=== PATIENT | female | born 1965 | race Caucasian/White ===

== ENCOUNTER → 2019-05-11 10:22 | Outpatient (CLI) | payer OTHER, SELFPAY ==
--- NOTE | 2019-05-11 | DI.MG.S_ITS ---
BILATERAL DIGITAL SCREENING MAMMOGRAM 3D/2D WITH CAD: 05/11/2019 CLINICAL: Routine screening. Family history of breast cancer. Comparison is made to exams dated: 03/15/2011 mammogram, 03/19/2007 mammogram, and 02/25/2006 mammogram - [facility]. There are scattered fibroglandular elements in both breasts. Current study was also evaluated with a Computer Aided Detection (CAD) system. No significant masses, calcifications, or other findings are seen in either breast. There has been no significant interval change. IMPRESSION: NEGATIVE There is no mammographic evidence of malignancy. A 1 year screening mammogram is recommended. This exam was interpreted at Station ID: [id number]. NOTE: For mammograms, a report in lay terms will be sent to the patient. Approximately 15% of breast malignancies will not be visualized mammographically. In the management of a palpable breast mass, a negative mammogram must not discourage biopsy of a clinically suspicious lesion. Electronically Signed By: Dipak mayer/jacqueline:05/11/2019 17:31:18 letter sent: Normal Exam ACR BI-RADS Category 1: Negative [id number]
== END ==
PROVIDERS: PCP Registered Nurse Women's Health Care, Ambulatory; Visit Provider Nurse Practitioner Family
DX: Z12.31 Encounter for screening mammogram for malignant neoplasm of breast (principal); Z80.3 Family history of malignant neoplasm of breast
CPT/HCPCS: 77063; 77067

== ENCOUNTER 2019-08-16 11:32 | Day surgery (SDC) | payer OTHER, SELFPAY ==
--- NOTE | 2019-08-16 06:01 | PM.HP.1 ---
History of Present Illness History of Present Illness Date Patient Seen: 08/16/19 Time Patient Seen: 12:45 Chief complaint: [id number] Narrative: 53 Years Old Female comes in today for consideration of a screening colonoscopy. There have been no lower GI symptoms suggesting disease such as change in bowel habits, bleeding, abdominal pain or anemia. There's been no family history of colon cancer or colon polyps. Overall health issues have been stable, including no major cardiac events for at least 6 weeks. 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[place] [employer] Members: 4 Education: completed in 1985 Sun Exposure: frequently Meds Home Medications and Allergies Home Medications Medication Instructions Recorded Confirmed Type atorvastatin 10 mg PO BEDTIME 08/16/19 08/16/19 History pediatric [id number]-[id number] 1 tab PO DAILY 08/16/19 08/16/19 History [Multi-Vitamins with Iron] Allergies Allergy/AdvReac Type Severity Reaction Status Date / Time No Known Drug Allergies Allergy Verified 08/16/19 12:18 Review of Systems Review of Systems ROS Unobtainable: All systems reviewed & are unremarkable except as noted in HPI and below Exam Narrative Exam Narrative: General: Alert and oriented, appearing stated age and in no acute distress. Head: normocephalic and atraumatic, Neck: Neck soft and supple, no lymphadenopathy. Lungs: Clear to auscultation bilaterally, no wheezes, rhonchi or rales. Heart: Normal S1 and S2 with regular rate and rhythm, no audible murmurs, rubs or gallops. Abdomen: Soft, non-tender, non-distended, no organomegaly. Positive bowel sounds. Extremities: No clubbing, cyanosis, or edema. Neurologic: Cranial nerves II through XII grossly intact, no focal deficits. Skin: no concerning leisions. Psych: Alert and oriented x 3. Assessment & Plan Assessment & Plan narrative: Problem # 1: COLON CANCER SCREENING 1. Colonoscopy The nature and character of the procedure as well as anticipated results were discussed. The possibility of not completing the procedure was also discussed. Possible complications including aspiration pneumonia, bleeding, perforation and reaction to medications either for sedation or preparation and missed lesions were discussed. Questions were answered and proceeding to the colonoscopy was elected. Informed consent signed. I sincerely appreciate the referral allowing me to participate in this patient's care. Please contact me with any questions or concerns.
[2019-08-16] MEDS: HYOSCYAMINE 0.125 MG TABLET PO (12:26)
[2019-08-16] MEDS: SODIUM CHLORIDE 0.9% 1,000 ML 200 ML IV (12:32)
[2019-08-16 12:33] VITALS: BP 130/90; PULSE 99; RESP 17; TEMP 36.2; O2SAT 96; BMI 29.0
--- NOTE | 2019-08-16 13:21 | PM.OP.ENDO ---
Operative Date/Time/Diagnoses Date of procedure: 08/16/19 Time of procedure: 13:21 Pre-op diagnosis: 1. Screening for colon cancer Post-op diagnosis: same (Normal colonoscopy) Procedure & Clinicians Study performed: Colonoscopy Same procedure as scheduled: Yes Indications: 1. Screening for colon cancer Surgeon: Vicenta Franz Procedure Notes SCOAP/Timeout: 13:34 Procedure in detail: ENDOSCOPIST: Vicenta Franz MD Sedation RN: Yelitza Abdul RN Sedation start time: 13:35 Sedation end time:13:49 PROCEDURE: Colonoscopy INDICATIONS: 1. Screening for colon cancer MEDICATION: Levsin 0.125 mg sublingual, incremental doses of Versed and fentanyl until appropriate level sedation achieved. ASA CLASS: 2 CECAL WITHDRAWAL TIME: 7 minutes COMPLICATIONS: None. EXTENT OF PROCEDURE: Cecum. QUALITY OF PREP: Good with portions of liquid stool. PROCEDURE: Prior to insertion of the colonoscope, a digital rectal examination was accomplished with circumferential palpation of the distal rectal mucosa without significant findings being noted. The high-definition pediatric colonoscope was passed into the rectum in the usual fashion and advanced over to the cecum without difficulty. The ileocecal valve, appendiceal stoma, and medial wall all could be inspected and no abnormalities were seen. ASCENDING COLON: As the colonoscope was withdrawn, care was taken to expose and inspect the haustral folds and no abnormalities were seen. HEPATIC FLEXURE: Normal no polyps, diverticula or other abnormalities. TRANSVERSE COLON: Normal no polyps, diverticula or other abnormalities. DESCENDING COLON: Normal no polyps, diverticula or other abnormalities. SIGMOID COLON: Normal no polyps, diverticula or other abnormalities. RECTUM: Normal. J maneuver was produced. There was no significant perianal disease. The J maneuver was broken. The remainder of the rectum was inspected and there was no external hemorrhoid disease. The scope was withdrawn. IMPRESSION: 1. Normal colonoscopy PLAN: 1. Repeat colonoscopy in 10 years. The possibility of a missed lesion including a malignancy has been discussed with the patient previously. Potential alarm symptoms have been discussed and should be reported immediately. Scope withdrawal time: 7 minutes Sedation minutes: 21 Specimen(s): none sent Complications: none Impression: Normal colonoscopy Post-procedure Recommendations: Colonscopy in 10 years Follow up: as needed Disposition: PACU
--- NOTE | 2019-08-16 13:59 | SUR.OPER ---
ON PACU HOLD AFTER PROCEDURE END
[2019-08-16] MEDS: fentaNYL 250 MCG/5 ML INJ IV (14:01)
[2019-08-16] MEDS: MIDAZOLAM 5 MG/5 ML VIAL IV (14:02)
--- NOTE | 2019-08-16 14:04 | SUR.OPER ---
PROCEDURE ENDED AT 1356. ON PACU HOLD UNTIL 1404
[2019-08-16 14:05] VITALS: BP 135/91; PULSE 103; RESP 16; TEMP 36.8; O2SAT 96
[2019-08-16 14:29] VITALS: BP 115/77; PULSE 85; RESP 15; TEMP 36.2; O2SAT 96
== END 2019-08-16 14:35 | disposition home or self-care (01) ==
PROVIDERS: Family Provider Nurse Practitioner Family; PCP Nurse Practitioner Family; Visit Provider Student in an Organized Health Care Education/Training Program
PROC: 0DJD8ZZ Inspection of Lower Intestinal Tract, Via Natural or Artificial Opening Endoscopic (ICD-10-PCS; CPT 45378; principal; 2019-08-16 13:00)
DX: Z12.11 Encounter for screening for malignant neoplasm of colon (principal)
CPT/HCPCS: 45378; J2250; J3010